=== PATIENT | female | born 1980 | race Two or more races ===

== ENCOUNTER 2024-08-23 13:21 | Inpatient (IN) | payer OTHER ==
[~2024-08-23] VITALS: Ht 165.1 cm; Wt 59.9 kg
[~2024-08-23 13:21] MED LIST: CALCIUM 500 +1 EAC2 PO; INDOCIN25 MG PO; KEFLEX500 MG PO; PRENATAL COMPLE1 TAB PO; TERBUTALINE SULF5 MG PO; TL-SELECT DHA1 EACH
--- NOTE | 2024-08-23 13:40 | NUR ---
PTE ALERTA Y ORIENTADA X3 REFIERE VENIR A DARIEN POR REFERIDO YA QUE RESULTADOS DE LAB[facility]ATORI[facility] UN RESULTADO DE 6.22 HEMOGLOBINA. PTE REFIERE DOLOR DE SHANIKA.
--- NOTE | 2024-08-23 14:33 | NUR ---
PTE EVALUADO POR MD TRINIDAD ORDENA TX MED A PTE SE EDUCA A PTE SOBRE EL MISMO Y PTE REFEIRE ENTENDER. SE LELVA ACABO ORDENES BAJO MEDIDAS ACEPTICAS. PTE PEND A RESULTADOS DE LABS.
[2024-08-23 14:52] LABS: MEAN CORPUSCULAR HGB CONC 29.3 g/dl (32.0-36.0); PLATELET COUNT 334 K/uL (150-450); RED BLOOD COUNT 4.04 M/uL (4.00-6.00); RED CELL DISTRIBUTION WIDTH 19.2 % (11.5-14.5)
[2024-08-23 15:00] LABS: CALCIUM 9.3 mg/dL (8.5-10.1); CREATININE SERUM 0.66 mg/dL (0.55-1.02); GFR 98.21; POTASSIUM 3.96 mEq/L (3.5-5.1)
[2024-08-23 15:29] LABS: MEAN CELL VOLUME 54.4 fL (80.00-100.00); MEAN CORPUSCULAR HEMOGLOBIN 15.8 pg (27.00-32.0)
[2024-08-23 15:30] LABS: HEMOGLOBIN 6.4 g/dL (12.0-15.00)
--- NOTE | 2024-08-23 15:56 | NUR ---
SE REQUIZAN 2 UNIDADES DE PRBC PARA TRANSFUNDIR, SE LLEVAN TUBOS PILOTOS A LABORATORIO A LAS 4:00PM.
[2024-08-23] MEDS ORDERED: ESTROGENS, CONJUGATED 25 MG VIAL IV ONE (16:45)
[2024-08-23 16:52] VITALS: BP 140/80; O2SAT 100
[2024-08-23 17:56] VITALS: BP 156/94
[2024-08-24 01:35] VITALS: BP 120/79
[2024-08-24 08:03] VITALS: BP 137/81
[2024-08-24 11:00] VITALS: BP 137/82
[2024-08-24 16:25] VITALS: BP 142/85
[2024-08-24 17:33] LABS: HEMATOCRIT 33.4 % (36.0-45.00); HEMOGLOBIN 10.6 g/dL (12.0-15.00); MEAN CELL VOLUME 64.6 fL (80.00-100.00); MEAN CORPUSCULAR HEMOGLOBIN 20.5 pg (27.00-32.0); MEAN CORPUSCULAR HGB CONC 31.7 g/dl (32.0-36.0); PLATELET COUNT 343 K/uL (150-450); RED BLOOD COUNT 5.17 M/uL (4.00-6.00); RED CELL DISTRIBUTION WIDTH 30.9 % (11.5-14.5)
[2024-08-24] MEDS ORDERED: FF) NORGESTREL-ETHINYL ESTRADIOL TAB PO SCH (18:00)
[2024-08-25 01:50] VITALS: BP 140/83
[2024-08-25 08:22] VITALS: BP 131/84
[2024-08-25] MEDS ORDERED: SPRINTEC 28 DA1 EACH PO (15:22)
[2024-08-25] MEDS ORDERED: MAXFE CAPLET1 EAC1 PO (15:22)
[2024-08-25 16:15] VITALS: BP 140/80
== END 2024-08-25 15:52 | disposition home or self-care (01) | DRG 812 ==
LOC: ER 13:22 → OB/GYN 17:08 → SEC-K 17:08 → OB/GYN 17:34
PROVIDERS: General Practice; ADMIT Obstetrics & Gynecology; ATTEND Obstetrics & Gynecology
PROC: 30233N1 Transfusion of Nonautologous Red Blood Cells into Peripheral Vein, Percutaneous Approach (ICD-10-PCS; principal; 2024-08-23)
PROC: BU4CZZZ Ultrasonography of Uterus and Ovaries (ICD-10-PCS; 2024-08-23)
DX: D64.9 Anemia, unspecified (principal); N92.0 Excessive and frequent menstruation with regular cycle; Z20.822 Contact with and (suspected) exposure to COVID-19

== ENCOUNTER 2025-05-05 21:03 | Inpatient (IN) | payer OTHER ==
[~2025-05-05] VITALS: Ht 165.1 cm; Wt 54.4 kg
[~2025-05-05 21:03] MED LIST changes: +MAXFE CAPLET1 EAC1 PO; +SPRINTEC 28 DA1 EACH PO
[2025-05-05] MEDS ORDERED: FUROsemide 20 MG/2 ML VIAL IV SCH (22:15)
[2025-05-05] MEDS ORDERED: FUROsemide 20 MG/2 ML VIAL ONE (22:49)
[2025-05-05 23:22] LABS: EOS # 0.03 (0.04-0.54); EOS % 0.6 % (0.7-7.0); LYMPH # 1.44 (1.18-3.74); LYMPH % 27.7 % (19.3-53.1); MEAN CORPUSCULAR HEMOGLOBIN 17.3 pg (25.6-32.2); MONO % 11.6 % (4.7-12.5); NEUT # 3.05 (1.56-6.13); NEUT % 58.7 % (34.0-71.1); PLATELET COUNT 367 K/uL (163-369); RED BLOOD COUNT 3.69 M/uL (3.93-5.22); RED CELL DISTRIBUTION WIDTH 16.6 % (11.6-14.4)
[2025-05-05 23:33] LABS: HEMATOCRIT 23.4 % (34.1-44.9); HEMOGLOBIN 6.4 g/dL (11.2-15.7)
[2025-05-05 23:42] LABS: INR 0.94; PARTIAL THROMBOPLASTIN TIME 21.1 SECONDS (22.0-34.0); PROTHROMBIN TIME 10.3 SECONDS (9.0-11.5)
[2025-05-05] MEDS ORDERED: ACETAMINOPHEN 500 MG GEL..CAP PO PRN (23:45)
[2025-05-05] MEDS ORDERED: 0.9 % SODIUM CHLORIDE 1,000 ML IV SCH (23:45)
[2025-05-05 23:46] LABS: ALBUMIN 3.9 gm/dL (3.4-5.0); BILIRUBIN TOTAL 0.33 mg/dL (0.3-1.2); CALCIUM 9.4 mg/dL (8.5-10.1); CREATININE SERUM 0.76 mg/dL (0.55-1.02); GFR 83.06; GLOBULINA 3.2 G/DL (2.4-3.5); POTASSIUM 4.56 mEq/L (3.5-5.1); TOTAL PROTEIN 7.1 gm/dL (6.4-8.2)
[2025-05-05] MEDS ORDERED: FAMOTIDINE/PF 20 MG in 0.9 % SODIUM CHLORIDE 8 ML IV PUSH SCH (23:51)
[2025-05-06] MEDS ORDERED: FAMOTIDINE/PF 20 MG/2 ML VIAL ONE (00:59)
[2025-05-06 03:00] VITALS: BP 147/80
[2025-05-06 04:02] VITALS: BP 124/78; O2SAT 100
[2025-05-06] MEDS ORDERED: IRON FUM,PS/FOLIC/BCOMP,C NO.9 1 CAP CAPSULE PO SCH (09:00)
[2025-05-06 10:03] VITALS: BP 114/71; O2SAT 100
[2025-05-06] MEDS ORDERED: Cyanocobalamin/Mecobalamin 1 TAB.SL SL NR (13:45)
[2025-05-06 16:15] VITALS: BP 114/71; O2SAT 100
[2025-05-06] MEDS ORDERED: SOD FERRIC GLUC COMPLX/SUCROSE 125 MG in 0.9 % SODIUM CHLORIDE 100 ML IV SCH (17:00)
[2025-05-06] MEDS ORDERED: PANTOPRAZOLE SODIUM 40 MG TABLET.DR PO SCH (21:00)
[2025-05-06 23:44] VITALS: BP 122/74
[2025-05-07 08:29] VITALS: BP 109/62; O2SAT 99
[2025-05-07] MEDS ORDERED: Cyanocobalamin/Mecobalamin 1 TAB.SL SL SCH (09:00)
[2025-05-07 11:13] LABS: BASO % 1.4 % (0.1-1.2); EOS # 0.04 (0.04-0.54); EOS % 0.8 % (0.7-7.0); HEMATOCRIT 36.3 % (34.1-44.9); HEMOGLOBIN 10.9 g/dL (11.2-15.7); LYMPH # 1.01 (1.18-3.74); LYMPH % 19.6 % (19.3-53.1); MONO # 0.54 (0.24-0.82); MONO % 10.5 % (4.7-12.5); NEUT # 3.49 (1.56-6.13); NEUT % 67.5 % (34.0-71.1); PLATELET COUNT 329 K/uL (163-369)
[2025-05-07 11:28] LABS: RED CELL DISTRIBUTION WIDTH 22.2 % (11.6-14.4)
[2025-05-07 16:44] VITALS: BP 126/78
[2025-05-07 20:22] LABS: BASO % 0.9 % (0.1-1.2); EOS # 0.03 (0.04-0.54); EOS % 0.4 % (0.7-7.0); HEMATOCRIT 42.8 % (34.1-44.9); HEMOGLOBIN 13.2 g/dL (11.2-15.7); LYMPH # 1.66 (1.18-3.74); LYMPH % 21.7 % (19.3-53.1); MEAN CORPUSCULAR HEMOGLOBIN 22.1 pg (25.6-32.2); MONO # 0.76 (0.24-0.82); MONO % 9.9 % (4.7-12.5); NEUT # 5.11 (1.56-6.13); RED BLOOD COUNT 5.98 M/uL (3.93-5.22)
[2025-05-07 20:54] LABS: PLATELET COUNT 366 K/uL (163-369)
[2025-05-08 00:37] VITALS: BP 117/79; O2SAT 98
[2025-05-08 09:05] VITALS: BP 118/65; O2SAT 98
== END 2025-05-08 13:36 | disposition home or self-care (01) | DRG 812 ==
LOC: ER 21:03 → MEDI 05-06 01:10
PROVIDERS: General Practice; ADMIT Internal Medicine; ATTEND Internal Medicine
PROC: 30233N1 Transfusion of Nonautologous Red Blood Cells into Peripheral Vein, Percutaneous Approach (ICD-10-PCS; principal; 2025-05-06)
DX: D64.9 Anemia, unspecified (principal); I50.20 Unspecified systolic (congestive) heart failure; D25.1 Intramural leiomyoma of uterus; E78.5 Hyperlipidemia, unspecified; E03.9 Hypothyroidism, unspecified; I11.0 Hypertensive heart disease with heart failure; E11.9 Type 2 diabetes mellitus without complications; Z79.4 Long term (current) use of insulin

== ENCOUNTER 2025-10-21 23:15 | Inpatient (IN) | payer OTHER ==
[~2025-10-21] VITALS: Ht 165.1 cm; Wt 56.2 kg
[2025-10-21] MEDS ORDERED: ANTICONCEPTIVOS (23:46)
[2025-10-22] MEDS ORDERED: MEDROXYPROGESTERONE ACET 10 MG TABLET PO STA (00:08)
[2025-10-22] MEDS ORDERED: FAMOtidine 10 MG/ML (4ML VIAL) IV STA (00:10)
[2025-10-22] MEDS ORDERED: LACTULOSE 10 G/15 ML ML PO STA (00:11)
[2025-10-22] MEDS ORDERED: 0.9 % SODIUM CHLORIDE 500 ML IV SCH ×2 (00:15→04:15)
[2025-10-22] MEDS ORDERED: LACTULOSE 20 G/30 ML BLIST.PACK ONE (00:46)
[2025-10-22] MEDS ORDERED: FAMOTIDINE/PF 20 MG/2 ML VIAL ONE (00:46)
[2025-10-22 01:17] LABS: URINE APPEARANCE Clear; URINE BILIRRUBIN Negative (NEGATIVE); URINE BLOOD Large; URINE COLOR Yellow; URINE GLUCOSE Negative (NEGATIVE); URINE KETONE Negative (NEGATIVE); URINE LEUKOCYTE Negative; URINE NITRATE Negative; URINE PROTEIN Negative (NEGATIVE); URINE UROBILINOGEN 0.2 E.U./dl
[2025-10-22 01:21] LABS: URINE BACTERIA 9.1 uL (0.0-1933); URINE EPITHELIAL CELLS 2.1 uL (0.0-38.8); URINE RBC 513.0 uL (0.0-20.8); URINE WBC 7.9 uL (0.0-23.2)
[2025-10-22 01:34] LABS: URINE CAST 0.42 uL (0.0-1.40)
[2025-10-22 01:40] LABS: BASO % 0.5 % (0.1-1.2); EOS # 0.05 (0.04-0.54); EOS % 1.1 % (0.7-7.0); LYMPH # 1.49 (1.18-3.74); LYMPH % 33.6 % (19.3-53.1); MONO # 0.34 (0.24-0.82); MONO % 7.7 % (4.7-12.5); NEUT # 2.52 (1.56-6.13); NEUT % 56.9 % (34.0-71.1)
[2025-10-22 01:44] LABS: RED CELL DISTRIBUTION WIDTH 17.4 % (11.6-14.4)
[2025-10-22 01:49] LABS: INR 0.94
[2025-10-22 01:51] LABS: BUN CREA RATIO 16.0 (7.0-25.0); CREATININE SERUM 0.7 mg/dL (0.55-1.02); GFR 91.33; GLUCOSE FASTING 103.0 mg/dL (65-100); OSMOLALITY SERUM 286.0 MOSM/KG (275-295)
[2025-10-22] MEDS ORDERED: ACETAMINOPHEN 500 MG GEL..CAP PO ONE (11:41)
[2025-10-22] MEDS ORDERED: FAMOTIDINE/PF 20 MG in 0.9 % SODIUM CHLORIDE 8 ML IV PUSH SCH (17:54)
[2025-10-22] MEDS ORDERED: ACETAMINOPHEN 500 MG GEL..CAP PO PRN (18:00)
[2025-10-22] MEDS ORDERED: ONDANSETRON HCL 4 MG in 0.9 % SODIUM CHLORIDE 50 ML IV PRN (18:00)
[2025-10-22] MEDS ORDERED: MEDROXYPROGESTERONE ACET 10 MG TABLET PO ONE (18:00)
[2025-10-22] MEDS ORDERED: 0.9 % SODIUM CHLORIDE 1,000 ML IV SCH (18:00)
[2025-10-22 21:11] VITALS: BP 110/64; O2SAT 99
[2025-10-22 22:24] VITALS: BP 135/90
[2025-10-23] VITALS: BP 128/81
[2025-10-23 06:44] LABS: BASO % 0.9 % (0.1-1.2); EOS # 0.09 (0.04-0.54); EOS % 1.9 % (0.7-7.0); LYMPH # 1.29 (1.18-3.74); LYMPH % 27.8 % (19.3-53.1); MONO # 0.46 (0.24-0.82); MONO % 9.9 % (4.7-12.5); NEUT # 2.75 (1.56-6.13); NEUT % 59.3 % (34.0-71.1)
[2025-10-23 06:57] LABS: RED CELL DISTRIBUTION WIDTH 23.3 % (11.6-14.4)
[2025-10-23 08:03] VITALS: BP 122/81
[2025-10-23 16:07] VITALS: BP 135/62
[2025-10-23 19:50] LABS: BASO % 0.8 % (0.1-1.2); EOS # 0.07 (0.04-0.54); EOS % 1.3 % (0.7-7.0); LYMPH # 1.41 (1.18-3.74); LYMPH % 27.0 % (19.3-53.1); MONO # 0.53 (0.24-0.82); MONO % 10.1 % (4.7-12.5); NEUT # 3.17 (1.56-6.13); NEUT % 60.6 % (34.0-71.1); RED CELL DISTRIBUTION WIDTH 23.4 % (11.6-14.4)
[2025-10-24] VITALS: BP 102/66
[2025-10-24 08:49] VITALS: BP 116/75
== END 2025-10-24 11:43 | disposition home or self-care (01) | DRG 761 ==
LOC: ER 23:15 → OB/GYN 10-22 18:10
PROVIDERS: General Practice; ADMIT Obstetrics & Gynecology; ATTEND Obstetrics & Gynecology
PROC: 30233N1 Transfusion of Nonautologous Red Blood Cells into Peripheral Vein, Percutaneous Approach (ICD-10-PCS; principal; 2025-10-22)
PROC: BW21ZZZ Computerized Tomography (CT Scan) of Abdomen and Pelvis (ICD-10-PCS; 2025-10-22)
DX: N93.9 Abnormal uterine and vaginal bleeding, unspecified (principal); N92.0 Excessive and frequent menstruation with regular cycle; D25.1 Intramural leiomyoma of uterus